=== PATIENT | female | born 2000 | race Caucasian/White ===

== ENCOUNTER 2024-01-14 19:20 | Inpatient (IN) | payer OTHER ==
[2024-01-14] MEDS: ELECTROLYTE-148 SOLN 1,000 ML IV SCH (20:00)
[2024-01-14 20:59] VITALS: BMI 26.6
[2024-01-14 21:54] LABS: BASO % 0.3 % (0-2.0); EOS % 0.6 % (0-4.5); HEMATOCRIT 27.3 % (32.4-45.2); HEMOGLOBIN 8.6 GM/dL (10.7-15.3); LYMPH % 22.8 % (8-40); MCH 21.9 pg (25.7-33.7); MCHC 31.7 g/dl (32.0-36.0); MEAN CELL VOLUME 69.1 fl (80-96); MEAN PLT VOLUME 7.1 fl (7.5-11.1); MONO % 13.3 % (3.8-10.2); PLATELET COUNT 229 10^3/uL (134-434); RBC 3.95 M/mm3 (3.60-5.2); RDW 15.5 % (11.6-15.6); WHITE BLOOD COUNT 6.3 K/mm3 (4.0-10.0)
[2024-01-14 22:01] LABS: INR 0.96 (0.83-1.09)
[2024-01-14] MEDS: DINOPROSTONE 10 MG VAGINAL SUPPOSITORY VG ONE (22:15)
[2024-01-14 22:24] LABS: POTASSIUM 3.7 mmol/L (3.5-5.1)
[2024-01-14 22:25] LABS: CALCIUM 8.3 mg/dL (8.5-10.1)
[2024-01-14 22:26] LABS: BLOOD UREA NITROGEN 7.1 mg/dL (7-18)
[2024-01-14 22:29] LABS: CREATININE 0.7 mg/dL (0.55-1.3)
[2024-01-14] MEDS ORDERED: AMPICILLIN SODIUM 2 GM VIAL ONE (22:53)
[2024-01-14] MEDS: AMPICILLIN - 2 GM in SODIUM CHLORIDE 100 ML IVPB ONE (23:00)
[2024-01-14 23:18] LABS: HIV INTERPRETATION NEGATIVE (NEGATIVE)
[2024-01-15] MEDS ORDERED: BUTORPHANOL TARTRATE 2 MG/ML VIAL ONE (01:39)
[2024-01-15] MEDS ORDERED: PROMETHAZINE HCL 25 MG/1 ML VIAL ONE (01:40)
[2024-01-15] MEDS: BUTORPHANOL TARTRATE 1 MG/ML VIAL IVPB ONE (01:42)
[2024-01-15] MEDS: PROMETHAZINE HCL 25 MG/1 ML VIAL IVPB ONE (01:42)
[2024-01-15] MEDS: AMPICILLIN - 1 GM in SODIUM CHLORIDE 100 ML IVPB SCH ×2 (04:00→08:05)
[2024-01-15] MEDS ORDERED: AMPICILLIN SODIUM 1 GM VIAL ONE ×3 (04:33→12:04)
[2024-01-15] MEDS ORDERED: SODIUM CHLORIDE 100 ML IVPB ONE ×2 (07:54→12:04)
[2024-01-15] MEDS: OXYTOCIN 30 UNITS in 0.9% NS 30 UNIT/500 ML INFUS.BAG IVPB SCH (09:40)
[2024-01-15] MEDS ORDERED: FENTANYL/BUPIVACAINE/NS/PF - PCEA - 50 ML DISP.SYRIN EP ONE (10:06)
[2024-01-15] MEDS ORDERED: NALOXONE HCL 0.4 MG/ML VIAL IVPUSH PRN (10:32)
[2024-01-15] MEDS ORDERED: BUPIVACAINE HCL/PF 0.25% (2.5MG/ML) 10 ML VIAL ONE (10:34)
[2024-01-15] MEDS: FENTANYL/BUPIVACAINE/NS/PF - PCEA - 50 ML DISP.SYRIN EP SCH (10:50)
[2024-01-15] MEDS ORDERED: OXYTOCIN 20 UNITS in 0.9% NS 20 UNIT/1,000 ML INFUS.BAG IV ONE (13:29)
[2024-01-15] MEDS ORDERED: ACETAMINOPHEN 325 MG TABLET (FP) PO PRN (14:25)
[2024-01-15] MEDS ORDERED: BISACODYL 10 MG SUPP.RECT RC PRN (14:25)
[2024-01-15] MEDS ORDERED: BENZOCAINE 20% 57 GM BOTTLE TP PRN (14:25)
[2024-01-15] MEDS ORDERED: IBUPROFEN 600 MG TABLET (FP) PO PRN (14:25)
[2024-01-15] MEDS ORDERED: BENZOCAINE 28 GM HEMORRHOIDAL OINTMENT TP PRN (14:25)
[2024-01-15] MEDS ORDERED: WITCH HAZEL 50% (TUCKS) 40 PAD/JAR PAD TP PRN (14:25)
[2024-01-15] MEDS ORDERED: oxyCODONE HCL 5 MG TABLET PO PRN (14:25)
[2024-01-15] MEDS: OXYTOCIN 20 UNITS in 0.9% NS 20 UNIT/1,000 ML INFUS.BAG IV SCH (14:40)
[2024-01-15 15:04] LABS: CORD BASE EXCESS -8.1 mmol/L (0-2); CORD HCO3 19.4 mmHg (20-29); CORD PCO2 47.3 mmHg (30-78); CORD pH 7.231 (7.14-7.44)
[2024-01-15 15:04] LABS: CORD BASE EXCESS -2.2 mmol/L (0-2); CORD HCO3 22.5 mmHg (20-29); CORD PCO2 38.7 mmHg (30-78); CORD pH 7.382 (7.14-7.44)
[2024-01-15 16:25] LABS: BASO % 0.1 % (0-2.0); HEMATOCRIT 23.2 % (32.4-45.2); HEMOGLOBIN 7.2 GM/dL (10.7-15.3); LYMPH % 8.8 % (8-40); MCH 21.7 pg (25.7-33.7); MEAN CELL VOLUME 69.9 fl (80-96); MEAN PLT VOLUME 7.1 fl (7.5-11.1); MONO % 11.3 % (3.8-10.2); NEUT % 79.8 % (42.8-82.8); PLATELET COUNT 254 10^3/uL (134-434); RBC 3.33 M/mm3 (3.60-5.2); RDW 15.7 % (11.6-15.6); WHITE BLOOD COUNT 11.3 K/mm3 (4.0-10.0)
[2024-01-15 17:46] LABS: HIV INTERPRETATION NEGATIVE (NEGATIVE)
[2024-01-15] MEDS: METHYLERGONOVINE MALEATE 0.2 MG/1 ML AMP IM PRN (19:52)
[2024-01-15 23:47] VITALS: RESP 18
[2024-01-16 08:26] LABS: BASO % 0.3 % (0-2.0); EOS % 0.4 % (0-4.5); HEMATOCRIT 24.5 % (32.4-45.2); HEMOGLOBIN 8.1 GM/dL (10.7-15.3); LYMPH % 19.3 % (8-40); MCH 24.3 pg (25.7-33.7); MCHC 33.2 g/dl (32.0-36.0); MEAN CELL VOLUME 73.2 fl (80-96); MEAN PLT VOLUME 7.5 fl (7.5-11.1); MONO % 15.5 % (3.8-10.2); NEUT % 64.5 % (42.8-82.8); PLATELET COUNT 214 10^3/uL (134-434); RBC 3.35 M/mm3 (3.60-5.2); RDW 17.1 % (11.6-15.6); WHITE BLOOD COUNT 10.3 K/mm3 (4.0-10.0)
[2024-01-16] MEDS ORDERED: SENNOSIDES/DOCUSATE COMBO (SENNA PLUS) TABLET (UD) PO PRN (22:00)
[2024-01-16 22:27] VITALS: PULSE 82
[2024-01-17 10:01] VITALS: BP 115/76; TEMP 98
[2024-01-17] MEDS: FERROUS SO4 325 MG TABLET (FP) PO SCH (11:57)
== END 2024-01-17 14:05 | disposition home or self-care (01) | DRG 560 ==
LOC: JLDR 19:20 → J3W 01-15 21:30
PROVIDERS: ADMIT Family Medicine; ATTEND Obstetrics & Gynecology
PROC: 10E0XZZ Delivery of Products of Conception, External Approach (ICD-10-PCS; principal; 2024-01-15)
PROC: 0KQM0ZZ Repair Perineum Muscle, Open Approach (ICD-10-PCS; 2024-01-15)
DX: O70.1 Second degree perineal laceration during delivery (principal); Z3A.39 39 weeks gestation of pregnancy; Z37.0 Single live birth
CPT/HCPCS: 36415; 36430; 36600; 59409; 80048; 82803; 85025; 85610; 85730; 86780; 86850; 86900; 86901; 86922; 87389; P9058